=== PATIENT | female | born 1965 | race Caucasian/White ===

== ENCOUNTER 2018-05-29 09:55 | Day surgery (SDC) | payer BC ==
[2018-05-29] MEDS ORDERED: ONDANSETRON HCL IV 4 MG/2 ML VIAL IVP ONE (09:56)
[2018-05-29] MEDS ORDERED: LIDOCAINE 2% MDV (20MG/ML) 20ML VIAL IV ONE (09:56)
[2018-05-29] MEDS ORDERED: MIDAZOLAM HCL 2MG/2ML VIAL IV ONE (09:56)
[2018-05-29] MEDS ORDERED: PROPOFOL 10 MG/ML VIAL IV ONE (09:56)
--- NOTE | 2018-05-30 12:40 | Operative Note ---
DATE OF SURGERY: 05/29/2018 OPERATION: COLONOSCOPY with cold forceps polypectomy. PREOPERATIVE DIAGNOSIS: Colon cancer screening, average risk, initial exam. POSTOPERATIVE DIAGNOSIS: Distal transverse colon polyp. PREPARATION QUALITY: Good. ESTIMATED BLOOD LOSS: Minimum. SPECIMENS: Transverse colon polyp. COMPLICATIONS: None apparent. PROCEDURE: After informed consent was obtained from the patient, she was placed in the left lateral decubitus position in the endoscopy suite, sedated and monitored by the department of anesthesia. Digital rectal examination was unremarkable. A well-lubricated [id number] colonoscope was inserted into the rectum and advanced in the transverse colon. There was a diminutive polyp identified which was removed with a cold forceps. Transabdominal pressure was then required to intubate the cecum. The cecum, cecal cap, ileocecal valve, appendiceal orifice, ascending colon, transverse colon, descending colon, sigmoid colon, and rectum were otherwise unremarkable. No additional polyps, mass lesions, or inflammation seen. Forward and J-turn views of the rectum and anorectum were unremarkable. The endoscope was straightened, the rectal ampulla deflated, and the endoscope was removed. RECOMMENDATIONS: I would suggest the patient resume her medications and diet. She will require repeat exam in 5-10 years pending tissue histology. As always, thank you for allowing me to participate in the healthcare of your patients. CC: JESUS LAMBERT D.O. CHAIM
== END 2018-05-29 11:34 | disposition home or self-care (01) ==
LOC: HOP 09:55
PROVIDERS: ATTEND Internal Medicine Gastroenterology
DX: Z12.11 Encounter for screening for malignant neoplasm of colon (principal); D12.3 Benign neoplasm of transverse colon; I10 Essential (primary) hypertension; G47.30 Sleep apnea, unspecified
CPT/HCPCS: 45380; 00811; J2405

== ENCOUNTER → 2018-11-28 | Day surgery (SDC) | payer BC ==
[~2018-11-28] MED LIST: ACETAMINOPHEN 1,000 MG/100 ML BTL IV ONE; CLINDAMYCIN 600MG/50ML PREMIX 600 MG/50 ML BAG IVPB ONE; FAMOTIDINE 20MG TABLET PO ONE; MECLIZINE 25 MG TABLET PO ONE; METOCLOPRAMIDE 10 MG TABLET PO ONE
== END | disposition home or self-care (01) ==
LOC: SUR 05:25
PROVIDERS: ATTEND Podiatrist
DX: Z53.9 Procedure and treatment not carried out, unspecified reason (principal)